=== PATIENT | female | born 1990 | race Caucasian/White ===

== ENCOUNTER 2020-03-27 16:41 | Emergency (ER) | payer OTHER, SELFPAY ==
--- NOTE | ~2020-03-27 | XR_ITS ---
EXAMINATION: XR chest 2V DATE: 03/27/2020 19:06 INDICATION: Hypertension, headache and chest tightness TECHNIQUE: PA and lateral views of the chest are obtained. COMPARISON: 02/23/2013 FINDINGS: The lungs are free of acute opacities. There is no pleural effusion or pneumothorax. The ca rdiomediastinal silhouette is normal. The visualized bones and soft tissues are unremarkable. IMPRESSION: 1. No acute cardiopulmonary abnormality. Reviewed, dictated and finalized at location A.
[2020-03-27 16:59] VITALS: BP 146/100; PULSE 82; RESP 18; TEMP 36.6; O2SAT 100
--- NOTE | 2020-03-27 17:08 | ECG_ITS ---
Measurements Intervals Jean Rate: 81 P: 52 LA: 126 QRS: 60 QRSD: 87 T: 6 QT: 377 QTc: 438 Interpretive Statements SINUS RHYTHM NONSPECIFIC T-WAVE ABNORMALITY- INFERIOR LEADS BORDERLINE ECG Electronically Signed On 03-27-2020 18:56:40 CDT by Geovanny Vernon D.O.
--- NOTE | 2020-03-27 17:16 | PC.NURSE ---
Attempt to obtain blood x2 at this time, unable to obtain blood at this time
--- NOTE | 2020-03-27 19:01 | ED.GENADULT ---
HPI - General Adult General Chief complaint: Unspecified Stated complaint: High Blood Pressure Time Seen by Provider: 03/27/20 18:58 History of Present Illness HPI narrative: Patient presents with her mother for 3 days of headache and elevated blood pressure. She works at [employer] in the [employer] department, and says that the headache is worse residential through her shift. Her mother says that both she and the which is the father both have hypertension. The patient has been having shortness of breath wearing the mask at work, but they have offered her a shield instead. She says that she does not want to take pills for blood pressure. She likes saying that she does not take medication for anything. Surgical history is appendectomy and 2 C-sections. She does not smoke,, or do drugs. She would like a COVID test and I advised her to seek a primary care physician and get it ordered in an outpatient facility. Related Data Allergies Allergy/AdvReac Type Severity Reaction Status Date / Time No Known Allergies Allergy Verified 03/27/20 19:03 Review of Systems Review of Systems: Narrative: CONSTITUTIONAL: Denies fever, chills, or sweats. EYES: Denies visual changes, redness, or discharge. ENT: Denies rhinorrhea, congestion, sore throat, or otalgia. CARDIOVASCULAR: Denies chest pain, palpitations, or edema. RESPIRATORY: Denies cough or dyspnea. GASTROINTESTINAL: Denies abdominal pain, nausea, vomiting, or diarrhea. GENITOURINARY: Denies dysuria or hematuria. SKIN: Denies rash or itching. MUSCULOSKELETAL: Denies back pain, joint pain, or myalgia. NEUROLOGIC: Denies headache now, numbness, or weakness. PSYCHIATRIC: Denies anxiety or depression. PMFSH Past Medical History Medical History (Updated 03/27/20 @ 19:46 by Kallie Domingo MD) History of asthma HTN (hypertension) Surgical History Surgical History (Updated 03/27/20 @ 19:46 by Kallie Domingo MD) History of appendectomy History of Social History Social History (Updated 03/27/20 @ 19:46 by Kallie Domingo MD) Smoking status: Never smoker Alcohol intake: never Substance use: never Exam Narrative: Exam Narrative: GENERAL: Well-appearing, well-nourished, and in no acute distress. HEAD: Normocephalic, atraumatic. EYES: PERRLA and EOMI. ENT: Nares clear, no rhinorrhea or epistaxis. Mucous membranes moist. NECK: Supple. CHEST: Clear to auscultation. No respiratory distress. HEART: Regular rate and rhythm. No murmur heard. Normal peripheral pulses. ABDOMEN: Soft, nontender, nondistended, normal active bowel sounds. EXTREMITIES: Normal range of motion. No edema. SKIN: Warm, dry, no rash. NEURO: No focal deficits. Alert and oriented x3. PSYCH: Normal mood and affect. Course Vital Signs Vital signs: Vital Signs Temperature 97.9 F 03/27/20 16:59 Pulse Rate 82 03/27/20 16:59 Respiratory Rate 18 03/27/20 16:59 Blood Pressure 146/100 H 03/27/20 16:59 Pulse Oximetry 100 03/27/20 16:59 Temperature 97.9 F 03/27/20 16:59 Pulse Rate 77 03/27/20 19:11 Respiratory Rate 17 03/27/20 19:11 Blood Pressure 157/95 H 03/27/20 19:11 Pulse Oximetry 100 03/27/20 19:11 Medical Decision Making Medical Records Medical records reviewed: Yes I reviewed the patient's medical records. Vital Signs Vital Signs: Vital Signs Temperature 97.9 F 03/27/20 16:59 Pulse Rate 82 03/27/20 16:59 Respiratory Rate 18 03/27/20 16:59 Blood Pressure 146/100 H 03/27/20 16:59 Pulse Oximetry 100 03/27/20 16:59 Temperature 97.9 F 03/27/20 16:59 Pulse Rate 77 03/27/20 19:11 Respiratory Rate 17 03/27/20 19:11 Blood Pressure 157/95 H 03/27/20 19:11 Pulse Oximetry 100 03/27/20 19:11 Lab Data Lab results reviewed: Yes I reviewed the patient's lab results. Result diagrams: 03/27/20 18:58 03/27/20 18:58 Labs: Lab Results 03/27/20 03/27/20 03/27/20 Range/Units 18:58 18:58 18:58 W
[2020-03-27 19:04] LABS: Basophils Absolute Auto 0.1 K/mm3 (0.0-0.1); Basophils Percent Auto 0.5 % (0.2-1.2); Eosinophils Absolute Auto 0.1 K/mm3 (0-0.3); Hematocrit 41.3 % (37.0-47.0); Hemoglobin 13.4 g/dL (12.0-15.0); Immature Granulocyte Absolute 0.03 K/mm3 (0.00-0.031); Immature Granulocyte Percent A 0.3 % (0-0.5); Lymphocytes Absolute Auto 1.37 K/mm3 (0.9-3.2); Lymphocytes Percent Auto 14.3 % (18.3-44.2); Mean Corpuscular HGB Conc 32.4 g/dl (32-36); Mean Corpuscular Hemoglobin 28.4 pg (26-34); Mean Corpuscular Volume 87.5 fl (80-100); Mean Platelet Volume 10.3 fl (7.4-10.4); Monocytes Absolute Auto 0.5 K/mm3 (0.1-0.6); Monocytes Percent Auto 4.9 % (2.6-8.5); Neutrophils Absolute Auto 7.5 K/mm3 (1.3-6.7); Platelet Count Result 283 k/mm3 (150-375); Red Blood Count 4.72 M/mm3 (4.2-5.4); Red Cell Distribution Width 12.4 % (11.5-14.5); White Blood Count 9.6 K/mm3 (4.5-10.0)
[2020-03-27 19:11] VITALS: BP 157/95; PULSE 77; PULSE 78; RESP 17; O2SAT 100
[2020-03-27 19:13] LABS: Prothrombin Time 12.7 Seconds (11.1-14.7)
[2020-03-27 19:14] LABS: Partial Thromboplastin Time 28.2 SECONDS (22.3-36.8)
[2020-03-27 19:17] LABS: Blood Urea Nitrogen 11 mg/dL (7-17); Calcium 9.5 mg/dL (8.4-10.2); Carbon Dioxide 28 mmol/L (22-30); Chloride 103 mmol/L (98-107); Estimated CRCL calculation 126 ml/min; Estimated Glomerular Filt Rate > 60; Glucose 92 mg/dL (65-105); Potassium 3.8 mmol/L (3.4-5.0); Sodium 141 mmol/L (137-145)
[2020-03-27 19:29] LABS: Troponin I < 0.012 ng/mL (0.000-0.034)
--- NOTE | 2020-03-27 19:54 | ED.GENADULT ---
HPI - General Adult General Chief complaint: Unspecified Stated complaint: High Blood Pressure Time Seen by Provider: 03/27/20 18:58 Related Data Allergies Allergy/AdvReac Type Severity Reaction Status Date / Time No Known Allergies Allergy Verified 03/27/20 19:03 [facility] Past Medical History Medical History (Updated 03/27/20 @ 19:46 by Kallie Domingo MD) History of asthma HTN (hypertension) Surgical History Surgical History (Updated 03/27/20 @ 19:46 by Kallie Domingo MD) History of appendectomy History of Social History Social History (Updated 03/27/20 @ 19:46 by Kallie Domingo MD) Smoking status: Never smoker Alcohol intake: never Substance use: never Course Vital Signs Vital signs: Vital Signs Temperature 97.9 F 03/27/20 16:59 Pulse Rate 82 03/27/20 16:59 Respiratory Rate 18 03/27/20 16:59 Blood Pressure 146/100 H 03/27/20 16:59 Pulse Oximetry 100 03/27/20 16:59 Temperature 98.3 F 03/27/20 20:07 Pulse Rate 80 03/27/20 20:07 Respiratory Rate 19 03/27/20 20:07 Blood Pressure 154/86 H 03/27/20 20:07 Pulse Oximetry 100 03/27/20 20:07 Medical Decision Making Vital Signs Vital Signs: Vital Signs Temperature 97.9 F 03/27/20 16:59 Pulse Rate 82 03/27/20 16:59 Respiratory Rate 18 03/27/20 16:59 Blood Pressure 146/100 H 03/27/20 16:59 Pulse Oximetry 100 03/27/20 16:59 Temperature 98.3 F 03/27/20 20:07 Pulse Rate 80 03/27/20 20:07 Respiratory Rate 19 03/27/20 20:07 Blood Pressure 154/86 H 03/27/20 20:07 Pulse Oximetry 100 03/27/20 20:07 Lab Data Result diagrams: 03/27/20 18:58 03/27/20 18:58 Labs: Lab Results 03/27/20 03/27/20 03/27/20 Range/Units 18:58 18:58 18:58 WBC 9.6 (4.5-10.0) K/mm3 RBC 4.72 (4.2-5.4) M/mm3 Hgb 13.4 (12.0-15.0) g/dL Hct 41.3 (37.0-47.0) % MCV 87.5 (80-100) fl MCH 28.4 (26-34) pg MCHC 32.4 (32-36) g/dl RDW 12.4 (11.5-14.5) % Plt Count 283 (150-375) k/mm3 MPV 10.3 (7.4-10.4) fl Immature Gran % (Auto) 0.3 (0-0.5) % Neut % (Auto) 79.0 H (45.5-73.1) % Lymph % (Auto) 14.3 L (18.3-44.2) % [place] % (Auto) 4.9 (2.6-8.5) % Eos % (Auto) 1.0 (0-4.4) % Baso % (Auto) 0.5 (0.2-1.2) % Lymph # (Auto) 1.37 (0.9-3.2) K/mm3 [place] # (Auto) 0.5 (0.1-0.6) K/mm3 Eos # (Auto) 0.1 (0-0.3) K/mm3 Baso # (Auto) 0.1 (0.0-0.1) K/mm3 Abs Immat Gran (auto) 0.03 (0.00-0.031) K/mm3 Absolute Neuts (auto) 7.5 H (1.3-6.7) K/mm3 Absolute Nucleated RBC 0.0 (0.0-0.012) K/mm3 Nucleated RBC % 0.0 (0.0-0.2) % PT 12.7 (11.1-14.7) Seconds INR 1.0 APTT 28.2 (22.3-36.8) SECONDS Sodium 141 (137-145) mmol/L Potassium 3.8 (3.4-5.0) mmol/L Chloride 103 (98-107) mmol/L Carbon Dioxide 28 (22-30) mmol/L BUN 11 (7-17) mg/dL Creatinine 0.60 L (0.7-1.0) mg/dL Estim Creat Clear Calc 126 ml/min Estimated GFR > 60 (59 - ) Glucose 92 (65-105) mg/dL Calcium 9.5 (8.4-10.2) mg/dL Troponin I < 0.012 (0.000-0.034) ng/mL Discharge Plan Discharge Clinical Impression: HTN (hypertension) Qualifiers: Hypertension type: essential hypertension Qualified Code(s): I10 - Essential (primary) hypertension Headache Qualifiers: Headache type: unspecified Headache chronicity pattern: unspecified pattern Intractability: not intractable Qualified Code(s): R51 - Headache Patient Disposition: Home, Self-Care Condition: Stable Instructions: Hypertension (ED) Prescriptions: New lisinopril 10 mg tablet 10 mg PO DAILY Qty: 30 RF: 0 Follow-up/Referrals: Barry Pham MD [Physician] - (Call and make a new patient appointment.) PHYSICIAN,TILE GRADER [Primary Care Provider] - Time of Disposition: 19:44 Discharge Date/Time: 03/27/20 20:15
[2020-03-27 20:07] VITALS: BP 154/86; PULSE 80; RESP 19; TEMP 36.8; O2SAT 100
== END 2020-03-27 20:15 | disposition home or self-care (01) ==
PROVIDERS: Emergency Medicine; Emergency Provider Emergency Medicine
DX: I10 Essential (primary) hypertension (principal); R51 Headache; J45.909 Unspecified asthma, uncomplicated
CPT/HCPCS: 36415; 71046; 80048; 84484; 85025; 85610; 85730; 93005; 99284; A9270

== ENCOUNTER 2020-09-25 16:06 | Emergency (ER) | payer OTHER, SELFPAY ==
--- NOTE | 2020-09-25 16:09 | ED.FEMALEGU ---
HPI - Female Genitourinary General Chief complaint: Urogenital-Female Stated complaint: UTI SYMPTOMS Time Seen by Provider: 09/25/20 16:09 Source: patient and RN notes reviewed History of Present Illness HPI Narrative: Patient is a 30-year-old female who presents the urgent care with complaints of a possible UTI. Patient states that yesterday she was having some fatigue and intermittent right and left low back pain. Patient states it was worse on the right. States that she does have a history of kidney stones and initially thought it was like the pain that she had in the past . Patient states that she was able to pass the 2 stones urine has been sometime. States that she has now been having chills but denies of any known fever. Denies of any nausea, vomiting, abdominal pain. States that this morning she had a lot of pressure with urination but denies of dysuria, urgency, hematuria. Patient states that her fianc? noticed that she did have urinary frequency. States that she is also been drinking a lot of soda recently especially over the holidays. No other acute complaints. Patient used Azo a few hours prior to arrival. No acute distress noted. Patient aware of the plan of care. Some parts of this dictation were generated by voice recognition software and may contain typographical and/or grammatical inaccuracies. Related Data Allergies Allergy/AdvReac Type Severity Reaction Status Date / Time No Known Allergies Allergy Verified 03/27/20 19:03 Review of Systems Review of Systems: Narrative: CONSTITUTIONAL: Denies fever, chills, or sweats. Reports of mild fatigue EYES: Denies visual changes, redness, or discharge. ENT: Denies rhinorrhea, congestion, sore throat, or otalgia. CARDIOVASCULAR: Denies chest pain, palpitations, or edema. RESPIRATORY: Denies cough or dyspnea. GASTROINTESTINAL: Denies abdominal pain, nausea, vomiting, or diarrhea. GENITOURINARY: Reports of suprapubic pressure SKIN: Denies rash or itching. MUSCULOSKELETAL: Reports of low back pain. NEUROLOGIC: Denies headache, numbness, or weakness. All other systems reviewed are negative, except as documented in HPI. [facility] Past Medical History Medical History (Updated 09/25/20 @ 16:37 by ISAIAS Boyer) History of asthma HTN (hypertension) Surgical History Surgical History (Updated 03/27/20 @ 19:46 by Kallie Domingo MD) History of appendectomy History of Social History Social History (Updated 03/27/20 @ 19:46 by Kallie Domingo MD) Smoking status: Never smoker Alcohol intake: never Substance use: never Comments At the time of my signature, I reviewed and agree with the nursing past medical, surgical, social, and family history. There is no relevant family history pertinent to the patient complaint. Exam Narrative: Exam Narrative: GENERAL: This is a well-nourished, well-developed patient, in no apparent distress. HEAD: normocephalic, atraumatic. EYES: PERRL. Sclera clear/white. Vision is grossly intact. EARS: External ears normal NOSE: External nose normal with no obvious nasal discharge, nares without redness, no rhinorrhea. THROAT: Mucous membranes moist NECK: Neck supple GASTROINTESTINAL: Abdomen soft, non-tender, nondistended. Bowel sounds are active. No suprapubic tenderness on assessment SKIN: warm, intact with no suspicious lesions or rash, good texture and turgor. NEURO: awake, alert, and oriented to person, place and time. There were no obvious focal neurologic abnormalities. EXTREMITIES: No clubbing, cyanosis, or edema. BACK: Negative bilateral CVA tenderness Course Vital Signs Vital signs: Vital Signs Temperature 97.6 F 09/25/20 16:11 Pulse Rate 88 09/25/20 16:11 Respiratory Rate 12 09/25/20 16:11 Blood Pressure 159/93 H 09/25/20 16:11 Pulse Oximetry 98 09/25/20 16:11 Temperature 97.6 F 09/25/20 16:11 Pulse Rate 88 09/25/20 16:11 Respiratory Rate 12 09/25/20 16:11 Blood Pr
[2020-09-25 16:11] VITALS: BP 159/93; PULSE 88; RESP 12; TEMP 36.4; O2SAT 98
== END 2020-09-25 16:46 | disposition home or self-care (01) ==
PROVIDERS: Emergency Provider Nurse Practitioner Family; PCP Nurse Practitioner Family
DX: R35.0 Frequency of micturition (principal); Z87.442 Personal history of urinary calculi; J45.909 Unspecified asthma, uncomplicated; I10 Essential (primary) hypertension
CPT/HCPCS: 81003; 87086; 99213; G0463

== ENCOUNTER 2022-12-09 13:12 | Emergency (ER) | payer OTHER, SELFPAY ==
--- NOTE | ~2022-12-09 | XR_ITS ---
EXAM: XR abdomen/kub 1V DATE: 12/09/2022 14:06 HISTORY: low abdomen pain left side,history kidney of stones . COMPARISON: CT abdomen pelvis 08/31/2015. FINDINGS: Surgical clips/calcified suture in the right lower quadrant from prior appendectomy. Normal bowel gas pattern. No organomegaly. The kidneys are not completely included in the dkyna-wo-njor. 2 and 5 mm calcific densities project over the right lower pole. Pelvic phleboliths. Regional bones and soft tissues normal for age. IMPRESSION: Kidneys partially excluded from the lnlkt-io-sois. Possible right nephrolithiasis. No def inite calcification in the expected pathway of the left ureter. Reviewed, dictated and finalized at location K. IMPRESSION: Kidneys partially excluded from the goynn-lg-hius. Possible right n ephrolithiasis. No definite calcification in the expected pathway of the left u reter.
[2022-12-09 13:29] VITALS: BP 135/71; PULSE 70; RESP 20; TEMP 36.6; O2SAT 100
--- NOTE | 2022-12-09 13:41 | ED.BACK ---
HPI - Back Pain/Injury General Chief Complaint: Back Pain/Injury Stated Complaint: nausea,lt side and back pain Time Seen by Provider: 12/09/22 13:41 Source: patient Mode of arrival: ambulatory Limitations: no limitations History of Present Illness HPI Narrative: 32-year-old female presents with complaint of left-sided back pain. Reports that she woke up this morning with pain across her lower back that has now moved to her left side only. Complaint of nausea. No vomiting. Afebrile. Reports history of kidney stones. States pain is similar with last stones. Was able to pass those stones on her own. No dysuria, frequency. No hematuria noted. Patient ambulatory with steady gait. All systems reviewed and negative except as noted above. Related Data Home Medications Medication Instructions Recorded Confirmed lisinopril 10 mg tablet 40 mg PO DAILY 12/09/22 12/09/22 Allergies Allergy/AdvReac Type Severity Reaction Status Date / Time No Known Allergies Allergy Verified 12/09/22 13:27 Review of Systems Review of Systems: CONSTITUTIONAL: Denies fever, chills, or sweats. EYES: Denies visual changes, redness, or discharge. ENT: Denies rhinorrhea, congestion, sore throat, or otalgia. CARDIOVASCULAR: Denies chest pain, palpitations, or edema. RESPIRATORY: Denies cough or dyspnea. GASTROINTESTINAL: Denies abdominal pain, nausea, vomiting, or diarrhea. GENITOURINARY: Denies dysuria or hematuria. Reports left flank pain. SKIN: Denies rash or itching. MUSCULOSKELETAL: Denies back pain, joint pain, or myalgia. NEUROLOGIC: Denies headache, numbness, or weakness. PSYCHIATRIC: Denies anxiety or depression. All other systems reviewed are negative, except as documented in HPI. [facility] Past Medical History Medical History (Updated 12/09/22 @ 14:52 by Elsa Julio NP) History of asthma HTN (hypertension) Surgical History Surgical History (Updated 03/27/20 @ 19:46 by Kallie Domingo MD) History of appendectomy History of Social History Social History (Updated 03/27/20 @ 19:46 by Kallie Domingo MD) Smoking status: Never smoker Alcohol intake: never Substance use: never Comments At time of signature, agree with nursing past medical, surgical, social and family history. There is no relevant family history pertinent to the presenting complaint. Exam Narrative: GENERAL: This is a well-nourished, well-developed patient, in no apparent distress. HEAD: normocephalic, atraumatic. EYES: PERRL. Sclera clear/white. Vision is grossly intact. EARS: External ears normal NOSE: External nose normal NECK: Neck supple, non-tender without lymphadenopathy, masses or thyromegaly. CARDIOVASCULAR: Regular rate and rhythm without murmurs, gallops, or rubs. RESPIRATORY: Clear to auscultation. Breath sounds equal bilaterally. No wheezes, rales, or rhonchi. SKIN: warm, Dry, intact with no suspicious lesions or rash, good texture and turgor. NEURO: awake, alert, and oriented to person, place and time. There were no obvious focal neurologic abnormalities. EXTREMITIES: No joint tenderness, effusion, or edema noted. No calf tenderness. Negative Homans sign bilaterally. BACK: Nontender without deformity. No CVA tenderness. Course Course Level of Care: Express Care Visit Vital Signs Vital signs: Vital Signs Temperature 36.6 C 12/09/22 13:29 Pulse Rate 70 12/09/22 13:29 Respiratory Rate 20 12/09/22 13:29 Blood Pressure 135/71 12/09/22 13:29 Pulse Oximetry 100 12/09/22 13:29 Oxygen Delivery Room Air 12/09/22 13:29 Temperature 36.6 C 12/09/22 13:29 Pulse Rate 70 12/09/22 13:29 Respiratory Rate 20 12/09/22 13:29 Blood Pressure 135/71 12/09/22 13:29 Pulse Oximetry 100 12/09/22 13:29 Oxygen Delivery Room Air 12/09/22 13:29 Reviewed MDM - Back Pain/Injury MDM Narrative Medical decision making narrative: Patient is aware of diagnosis, understands and agre
[2022-12-09] MEDS: ONDANSETRON HCL ODT 4 MG TABLET SUBLINGUAL (13:56)
[2022-12-09] MEDS: KETOROLAC (*BKC) 60 MG/2 ML VIAL IM (13:56)
== END 2022-12-09 15:05 | disposition home or self-care (01) ==
PROVIDERS: Emergency Provider Nurse Practitioner Family; PCP Nurse Practitioner Family
DX: N20.0 Calculus of kidney (principal); J45.909 Unspecified asthma, uncomplicated; I10 Essential (primary) hypertension
CPT/HCPCS: 74018; 81003; 81025; 96372; 99213; A9270; G0463; J1885

== ENCOUNTER 2023-01-07 23:50 | Emergency (ER) | payer OTHER, SELFPAY ==
[2023-01-07 23:52] VITALS: BP 151/94; PULSE 81; RESP 20; TEMP 36.7; O2SAT 100
--- NOTE | 2023-01-08 02:58 | PC.NURSE ---
no answer at triage
== END 2023-01-08 03:35 | disposition left against medical advice (07) ==
PROVIDERS: PCP Nurse Practitioner Family
DX: R10.30 Lower abdominal pain, unspecified (principal)
CPT/HCPCS: 99199

== ENCOUNTER 2025-05-08 01:21 | Day surgery (SDC) | payer OTHER, SELFPAY ==
[2025-04-27 11:51] VITALS: BMI 31.8
--- NOTE | 2025-04-27 12:11 | PC.NURSE ---
Report to the Outpatient Waiting Room, entrance under the green pavilion located off [facility], at time __0830 on date _05/08/25 . Planned Procedure Time: 1030 .? Time changes happen often and if your time is changed the preop area will call you the afternoon before. - You and your visitor will be asked to self-screen and do not enter if you have any COVID symptoms. Please call surgeon if you need to reschedule. - A mask is optional within the hospital at this time. Patients may have clear liquids (water, carbonated beverages, clear teas, apple juice) until 3 hours prior to surgery with a maximum of 20 ounces. - No food from midnight until time of surgery and no smoking, or chewing tobacco (or any form of nicotine). No chewing gum, candy or mints. Take only the following medications with a SIP of water on the morning of surgery: __NONE DO NOT STOP ANY OF YOUR OTHER PRESCRIPTION MEDICATIONS PRIOR TO SURGERY EXCEPT THE FOLLOWING Hold all vitamins and supplements for 3 days per anesthesiologist (VITAMIN D) Medications to discontinue per physician ___CONTINUE YOUR PROBIOTIC Date to take last dose__N/A Please no make-up, nail khmer, hairspray, perfume, deodorant, or body powder the day of surgery.? No jewelry (including any body piercings) or valuables the day of surgery, leave them at home.? Please take a shower or bath the night before, or the morning of, surgery with an antibacterial soap.? Wear comfortable, loose fitting clothing.? - Jewelry must be removed prior to entering the operating room.? Rings and piercings that are not removed may be cut off. - The hospital will not accept responsibility for valuables.? - Please leave all valuables, including medications, at home the day of surgery. If you are going home after surgery, a licensed owner operator tanker truck driver must drive you home.? - NO public transportation without another adult if you receive anesthesia. - We recommend that an adult stay with you for 24 hours following discharge. - We also recommend that you do not drive, make important decision, drink alcoholic beverages, or take any drugs that were not prescribed by your health care provider for at least 24 hours after your discharge time. Follow any additional instructions given to you from your surgeon. Telephone instructions given to __RHONDA and asked if any additional questions and then verbalized understanding. Patient advised to call surgeon office or pre surgery nurse liaison [phone] if any additional questions.
--- OUTSIDE RECORDS SUMMARY | 2025-05-08 01:24 | XMS_ITS | Continuity of Care Document ---
Author Organization [facility] Address [address] [place] [address] Phone Care Team Providers Care Toolmaker Grade Three Name Role Phone Quan Jenkins MD Unavailable Unavailable Advance Directives Directive Yes / No Effective Date File Name No Information Encounters Encounter Description Practice Location Reason(s) For Visit Diagnoses Date Provider Providers Copied on Encounter [facility], [address], [place], [place], [id number], [place] tel:[phone] [facility] No Information [address] [facility] [facility] [address] [place], [place], [id number], [place]. tel:[phone] Family History Family Member Type Diagnosis Age At Onset No Information Payers Payer name Insurance type Covered constitution party ID Authoriza tion(s) Medicaid [facility] [id number] Social History Type Description Quantity Date Captured Comments Sex Female Smoking Status No Information Chief Complaint And Reason For Visit No Information Reason For Referral Reason For Referral No Information History Of Present Illness Encounter Date Complaint History Of Prese nt Illness No Information Functional Status Date Functional Assessmen t No Information Instructions Date Instruction Additional Infor mation No Information Assessments Type Assessment Date No Information Patient Care Teams Name Effective Dates (start - stop) Status Members No Information
--- NOTE | 2025-05-08 07:52 | WPDANESEPPF ---
Anes - Initial Pre Proc Eval Procedure: Operation Date: 05/08/25 10:30 Proposed Procedures p Hysteroscopy Dilation and Curettage - Deborah Linda MD Date/Time: 05/08/25 07:52 Surgeon: Deborah Linda MD Pre Op Diagnosis: menorrhagia Patient Data Age: 35 Gender: F Height: 1.65 m Weight: 87 kg Allergies Allergy/AdvReac Type Severity Reaction Status Date / Time No Known Allergies Allergy Verified 05/08/25 09:33 Home Medications ?Medication ?Instructions ?Recorded ?Confirmed ?Type Saccharomyces boulardii 250 mg 10,000 mmu cells PO DAILY 04/27/25 04/27/25 History capsule (Daily Probiotic (S. boulardii)) cholecalciferol (vitamin D3) 125 5,000 unit PO DAILY 04/27/25 04/27/25 History mcg (5,000 unit) tablet (Vitamin D3) Patient hx anesthesia problems: none Family hx anesthesia problems: none Results Review: All pre-operative results and documents have been reviewed as part of the pre-operative evaluation. [facility] Past Medical History Medical History (Updated 05/08/25 @ 07:59 by Deborah Linda MD) Bipolar 1 disorder ADHD ADD (attention deficit disorder) Anxiety History of asthma HTN (hypertension) Surgical History Surgical History (Updated 05/08/25 @ 07:58 by Deborah Linda MD) History of X2 History of appendectomy Social History Social History (Updated 03/27/20 @ 19:46 by Kallie Domingo MD) Smoking status: Former smoker Alcohol intake: never Substance use: never Substance use type: does not use Living arrangements: with family Spiritual care concerns: No Anes - Eval Final PreProcedure Day of Procedure 05/08/25 07:52 Patient weight: obese Heart: regular rate and rhythm Lungs: clear to auscultation Airway: Mallampati scale class II Neurological: alert and oriented Last oral intake: >/= 8 hours ASA classification: II Emergent: no Anesthetic plan: proceed Anesthesia type and monitoring: general GIVS and standard monitoring Results Review: All pre-operative results and documents have been reviewed as part of the pre-operative evaluation. Informed Consent: The patient's anesthetic plan and its attendant risks and benefits were discussed with the patient/family/POA. Questions were solicited and answers provided to the satisfaction of the patient/family/POA.
--- NOTE | 2025-05-08 07:56 | WPDHPUPDATE1 ---
History and Physical Update Update Date/Time: 05/08/25 07:56 History and Physical has been reviewed, including an updated exam of the patient. There are NO changes in the patient's condition. Risks, benefits, and alternatives have been discussed and questions answered. Patient agrees to proceed with procedure.
--- NOTE | 2025-05-08 07:56 | PM.HPGS ---
History of Present Illness History of Present Illness Consent: Risks, benefits, and alternatives have been discussed and questions answered. Patient agrees to proceed with procedure. Chief complaint: menorrhagia Narrative: Jordyn De La Paz is a 35 year old female with prolonged cycles lasting for 10 to 13 days. It was recommended to undergo D&C hysteroscopy. Risks of infection, bleeding, perforation, and possible pathology were reviewed. Patient was hesitant to schedule. The risks of doing nothing were also reviewed including the risk of worsening pathology. The patient voices understanding agrees to proceed. Review of Systems Review of Systems: not repeated day of surgery; patient states no changes in status PMF Past Medical History Medical History (Updated 05/08/25 @ 07:59 by Deborah Linda MD) Bipolar 1 disorder ADHD ADD (attention deficit disorder) Anxiety History of asthma HTN (hypertension) Surgical History Surgical History (Updated 05/08/25 @ 07:58 by Deborah Linda MD) History of X2 History of appendectomy Social History Social History (Updated 03/27/20 @ 19:46 by Kallie Domingo MD) Smoking status: Former smoker Alcohol intake: never Substance use: never Substance use type: does not use Living arrangements: with family Spiritual care concerns: No Meds Home Medications and Allergies Home Medications ?Medication ?Instructions ?Recorded ?Confirmed ?Type Saccharomyces boulardii 250 mg 10,000 mmu cells PO DAILY 04/27/25 04/27/25 History capsule (Daily Probiotic (S. boulardii)) cholecalciferol (vitamin D3) 125 5,000 unit PO DAILY 04/27/25 04/27/25 History mcg (5,000 unit) tablet (Vitamin D3) Allergies Allergy/AdvReac Type Severity Reaction Status Date / Time No Known Allergies Allergy Verified 04/27/25 11:59 Exam Const: General: healthy appearing and alert Orientation/consciousness: patient oriented x3 Resp: Effort & Inspection: normal respiratory effort : External Female Exam: normal external appearance Speculum Exam - Vagina: normal appearance of the vagina and normal vaginal discharge Speculum Exam - Cervix: normal appearance of the cervix Bimanual exam- vagina & uterus: uterine size normal and consistency normal Bimanual Exam- Adnexa, other: normal adnexae and No adnexal tenderness Neuro: General: patient oriented x3 Assessment and Plan Assessment and plan (1) Menorrhagia: Code(s): N92.0 - Excessive and frequent menstruation with regular cycle Status: Acute Assessment and Plan: Plan to proceed with D&C hysteroscopy
[2025-05-08] MEDS: ACETAMINOPHEN 500 MG TABLET 1000 MG PO (09:20)
[2025-05-08] MEDS: LACTATED RINGERS 1,000 ML 30 ML IV CONT (09:30)
[2025-05-08 09:34] VITALS: BP 151/80; PULSE 84; TEMP 36.4; O2SAT 100; BMI 31.4
[2025-05-08 09:44] LABS: BEDSIDEPREGUCG Negative (Negative)
[2025-05-08] MEDS: KETOROLAC 30 MG/ML VIAL (*BKC) IV PUSH (10:26)
--- NOTE | 2025-05-08 10:31 | S_PTH ---
PATIENT: Jordyn De La Paz LOC: [facility] U#:[id number] AGE/SX: 35/F ROOM: RE05/08/[address]: Deborah Linda MD : 1990 BED: DIS: 05/08/2025 SPEC #: [id number] RECD: 05/08/25 11:59 STATUS: HYACINTH RE #: [id number] ORQUIDEA: 05/08/25 10:[address]: Deborah Linda DEPT: [facility] Surgical RECD BY: Radha Andrews ENTERED: 05/08/25 12:00 SP TYPE: Surgical OTHR DR: Dayron EchavarriaMD Tissues: A - Endometrial Curettings Procedures: Hematoxylin and Eosin Stain Gross and Microscopic Level 4
--- NOTE | 2025-05-08 10:36 | W.PM.PROC2 ---
Procedure Note - Detailed Date of Procedure 05/08/25 Pre-op Diagnosis menorrhagia Post-op Diagnosis Same Procedure Performed D&C hysteroscopy Surgeon Deborah Linda MD Anesthesia MAC Findings The uterus sounds to 9cm and appears grossly normal. Description of Procedure The patient was taken to the operating room and placed under anesthesia in the dorsal lithotomy position. She was prepped and draped in the usual sterile fashion. [place] speculum was placed in the vagina and the cervix grasped on the anterior lip with a tenaculum. The uterus is sounded to 9cm. The diagnostic hysteroscope was placed and with no abnormalities noted it is removed. The OO sharp curette would not pass the internal os. The [place] was were used to dilate to a 5. The OO sharp curette was then used to curette the endometrium until a good uterine cry was noted in all areas. All instruments are removed. Sponge, needle, and instrument counts are correct per the OR staff. The patient was awakened from anesthesia and taken to recovery in stable condition. Estimated Blood Loss 5 Drains No Packing No Pathology Yes (Endometrial curettings) Complications No immediate complications Condition Stable Disposition PACU
[2025-05-08 10:37] VITALS: BP 115/63; PULSE 70; RESP 16; O2SAT 99
[2025-05-08 11:05] VITALS: BP 141/73; PULSE 60; O2SAT 100
[2025-05-08 11:35] VITALS: BP 162/82; PULSE 76
[2025-05-08 12:00] VITALS: BP 150/68; PULSE 78
== END 2025-05-08 12:05 | disposition home or self-care (01) ==
PROVIDERS: PCP Family Medicine; Visit Provider Obstetrics & Gynecology Gynecology
PROC: 0U5B8ZZ Destruction of Endometrium, Via Natural or Artificial Opening Endoscopic (ICD-10-PCS; CPT 58563; principal; 2025-05-08 10:30)
DX: N85.8 Other specified noninflammatory disorders of uterus (principal); I10 Essential (primary) hypertension; J45.909 Unspecified asthma, uncomplicated; F41.9 Anxiety disorder, unspecified; F90.9 Attention-deficit hyperactivity disorder, unspecified type; F31.9 Bipolar disorder, unspecified; E66.9 Obesity, unspecified; Z68.31 Body mass index [BMI] 31.0-31.9, adult; Z98.890 Other specified postprocedural states; Z87.891 Personal history of nicotine dependence
CPT/HCPCS: 58558; 88305; A9270; J1885; J2003; J2250; J2704; J3010; J7120

== ENCOUNTER 2025-09-03 19:23 | Emergency (ER) | payer OTHER, SELFPAY ==
--- NOTE | 2025-09-03 19:41 | ED_ITS ---
HPI - URI/Sore Throat General Chief Complaint: Upper Respiratory Infection Stated Complaint: URI Time Seen by Provider: 09/03/25 19:55 Source: patient and RN notes reviewed Mode of arrival: ambulatory Limitations: no limitations History of Present Illness HPI Narrative: 35-year-old female presents with concern for several day history of sore throat, nasal congestion, loss of taste and smell. Reports sore throat was worse this morning. She denies fever, body aches, chills, sweats. She denies cough. She took Benadryl, Tylenol and 1 DayQuil today MD elicited complaint: sore throat and nasal congestion Related Data Home Medications ?Medication ?Instructions ?Recorded ?Confirmed ?Last Taken ?Type Saccharomyces boulardii 250 mg 10,000 mmu cells PO BRITTANY LY 04/27/25 04/27/25 Unknown History capsule (Daily Probiotic (S. boulardii)) cholecalciferol (vitamin D3) 125 5,000 unit PO DAILY 0 04/27/25 04/27/25 Unknown History mcg (5,000 unit) tablet (Vitamin D3) metoprolol succinate 25 mg mg PO 09/03/25 Unknown His tory tablet,extended release 24 hr norgestimate-ethinyl estradiol tablet 09/03/25 Unknow n History 0.18mg/0.215mg/0.25mg-0.035mg(28)tablet (Tri-Sprintec (28)) Allergies Allergy/AdvReac Type Severity Reaction Status Date / Time No Known Allergies Allergy Verified 09/03/25 19:43 Review of Systems Review of Systems: CONSTITUTIONAL: Denies malaise, chills, sweats, or fever. EYES: Denies visual changes, redness, or discharge. ENT: Reports rhinorrhea, congestion, and sore throat. CARDIOVASCULAR: Denies chest pain, palpitations, or edema. RESPIRATORY: Denies cough. Denies dyspnea. GASTROINTESTINAL: Denies abdominal pain, nausea, vomiting, diarrhea SKIN: Denies rash or itching. MUSCULOSKELETAL: Denies myalgia. NEUROLOGIC: Denies headache. All systems reviewed & are unremarkable except as noted in HPI and below PMFSH Past Medical History Medical History (Updated 09/03/25 @ 20:01 by Breanna Borrego APRN) Bipolar 1 disorder ADHD ADD (attention deficit disorder) Anxiety History of asthma HTN (hypertension) Surgical History Surgical History (Updated 05/08/25 @ 07:58 by Deborah Linda MD) History of X2 History of appendectomy Social History Social History (Updated 03/27/20 @ 19:46 by Kallie Domingo MD) Smoking status: Former smoker Alcohol intake: never Substance use: never Substance use type: does not use Living arrangements: with family Spiritual care concerns: No Comments At time of signature, agree with nursing past medical, surgical, social and family history. There is no relevant family history pertinent to the presenting complaint Exam Narrative: GENERAL: Well-appearing, well-nourished, and in no acute distress. HEAD: Normocephalic EYES: PERRLA, conjunctivae clear ENT: Nares clear. Mucous membranes moist. TM pearly lara with sharp light reflex bilaterally; no tragal tenderness. Oropharynx not erythematous without lesions. Tonsils not enlarged and without exudate, no drooling, no hoarseness, no trismus, uvula midline. NECK: Supple. No lymphadenopathy CHEST: Clear to auscultation, breath sounds equal. No wheezing, rhonchi, rales, or stridor. No respiratory distress, speaks in full sentences. HEART: Regular rate and rhythm. No murmur heard. SKIN: Warm, dry, no rash. NEURO: Alert and oriented x3. PSYCH: Normal mood and affect Course Course Emergency Course: Patient is aware of diagnosis, understands and agrees to treatment plan. Anticipatory guidance given. Patient agrees to follow-up as directed and is aware of reasons to seek care at the emergency department. Portions of this record may have been created with voice recognition software Level of Care: [facility] Visit MDM Differential Diagnosis Differential Diagnosis: I evaluated this patient in the [facility]. History is obtained from patient who is an independent historian and physical exam was performed.? Available medical records were reviewed. ? Exam findings and relevant testing show no acute concerns or changes; patient is non-toxic appearing and is in no distress. ? Differential diagnosis considered: Simmons virus, strep pharyngitis, allergic rhinitis, upper respiratory tract infection, sinusitis, rhinosinusitis, nasopharyngitis. viral pharyngitis, otitis media, otitis externa, pneumonia, bronchitis, viral cough syndrome, viral syndrome, and influenza. Differential diagnosis and treatment plan were discussed with the patient. Patient agrees with discussion and after shared medical decision making agrees with plan of care. All questions were answered to the patient's satisfaction. Patient is appropriate for outpatient treatment and follow-up. Discharge Plan Discharge Clinical Impression: Upper respiratory infection Patient Disposition: Home Condition: Stable Instructions: Antibiotic Form, Upper Respiratory Infection (ED) Additional Instructions: Your rapid COVID and flu tests are negative Your rapid strep swab was negative today at [facility]. A throat culture will be sent to the laboratory for further testing. If the test is positive, you will receive a phone call within 48 hours and an appropriate antibiotic will be initiated at that time. Your symptoms are likely due to a viral illness, which is not treated with antibiotics. Viral symptoms can be present for up to a few weeks. -Alternate Tylenol and Motrin per package directions for fever or pain. -Antihistamine medication such as Benadryl at night and Zyrtec during the day can help improve symptoms. -Eat and drink things that are easy to swallow, like tea or soup, or popsicles to suck on. -Oral rinses such as: Salt water gargles and/or may use topical anesthetic (eg. Chloraseptic spray) or lozenges to relieve dryness or throat pain). -Frequent hand washing or hand cylindrical mixer is one of the best ways to prevent spread of infection. -Follow up with primary care provider in 2-3 days if condition is not improving; or seek ER visit if you have trouble breathing, cannot drink enough fluids, have muffled voice, difficulty opening your mouth, or severe swelling. Patient Language: Welsh Prescriptions: New pseudoephedrine HCl [12 Hour Decongestant] 120 mg tablet extended release 120 mg PO Q12H PRN (Reason: nasal congestion) Qty: 20 0RF No Action norgestimate-ethinyl estradiol [Tri-Sprintec (28)] 0.18/0.215/0.25 mg-0.035mg (28) tablet metoprolol succinate 25 mg tablet extended release 24 hr PO cholecalciferol (vitamin D3) [Vitamin D3] 125 mcg (5,000 unit) tablet 5,000 unit PO DAILY Saccharomyces boulardii [Daily Probiotic (S. boulardii)] 250 mg capsule 10,000 mmu cells PO DAILY Follow-up/Referrals: Jericho,MD Dayron [Primary Care Provider, Unknown] Time of Disposition: 20:04
[2025-09-03 19:44] VITALS: BP 181/97; PULSE 76; RESP 16; TEMP 36.7; O2SAT 99
[2025-09-03 20:03] LABS: EDCOVIDSCREEN Negative (Negative); EDINFLUASCREEN Negative (Negative); EDINFLUBSCREEN Negative (Negative); EDSTREPNEGPOS1 Negative (Negative)
== END 2025-09-03 20:07 | disposition home or self-care (01) ==
PROVIDERS: Emergency Provider Nurse Practitioner; PCP Family Medicine
DX: J06.9 Acute upper respiratory infection, unspecified (principal); I10 Essential (primary) hypertension; J45.909 Unspecified asthma, uncomplicated; Z87.891 Personal history of nicotine dependence
CPT/HCPCS: 87081; 87426; 87804; 87880; 99213; G0463

== ENCOUNTER 2025-09-12 13:50 | Emergency (ER) | payer OTHER, SELFPAY ==
--- NOTE | 2025-09-12 13:51 | ED_ITS ---
HPI - URI/Sore Throat General Chief Complaint: Upper Respiratory Infection Stated Complaint: URI Source: patient and RN notes reviewed Mode of arrival: ambulatory Limitations: no limitations History of Present Illness HPI Narrative: Patient is a 35-year-old female who presents to the [facility] with complaints nasal congestion, cough, headache, sore throat that has been ongoing for the past 10 days. Patient reports nasal congestion and drainage. She states that she has been taking cold and flu medication at home without relief. She reports frequent nonproductive cough. Denies chest pain or shortness of breath. She does endorse generalized body aches and chills. She states that when she initially got sick, she was evaluated at this facility and tested for COVID, flu, strep. Her tests were all negative. However, she continues to have symptoms. Her respirations are unlabored. She does not appear in any acute distress. Related Data Home Medications ?Medication ?Instructions ?Recorded ?Confirmed ?Last Taken ?Type Saccharomyces boulardii 250 mg 10,000 mmu cells PO BRITTANY LY 04/27/25 04/27/25 Unknown History capsule (Daily Probiotic (S. boulardii)) cholecalciferol (vitamin D3) 125 5,000 unit PO DAILY 0 04/27/25 04/27/25 Unknown History mcg (5,000 unit) tablet (Vitamin D3) metoprolol succinate 25 mg mg PO 09/03/25 Unknown His tory tablet,extended release 24 hr norgestimate-ethinyl estradiol tablet 09/03/25 Unknow n History 0.18mg/0.215mg/0.25mg-0.035mg(28)tablet (Tri-Sprintec (28)) Allergies Allergy/AdvReac Type Severity Reaction Status Date / Time No Known Allergies Allergy Verified 09/12/25 13:51 Review of Systems Review of Systems: CONSTITUTIONAL: Denies fever, but reports chills. EYES: Denies visual changes, redness, or discharge. ENT: Denies otalgia but reports sore throat and congestion. CARDIOVASCULAR: Denies chest pain, palpitations, or edema. RESPIRATORY: Reports cough but denies dyspnea. GASTROINTESTINAL: Denies abdominal pain, nausea, vomiting, or diarrhea. GENITOURINARY: Denies dysuria or hematuria. SKIN: Denies rash or itching. MUSCULOSKELETAL: Denies back pain and joint pain, but reports myalgia. NEUROLOGIC: Reports headache but denies numbness or weakness. Pertinent positives per HPI. [facility] Past Medical History Medical History Bipolar 1 disorder ADHD ADD (attention deficit disorder) Anxiety History of asthma HTN (hypertension) Surgical History Surgical History History of X2 History of appendectomy Social History Social History Smoking status: Former smoker Alcohol intake: never Substance use: never Substance use type: does not use Living arrangements: with family Spiritual care concerns: No Comments At the time of my signature, I reviewed and agree with the nursing past medical, surgical, social, and family history. There is no relevant family history pertinent to the patient complaint. Exam Narrative: GENERAL: This is a well-nourished, well-developed patient, in no apparent distress. HEAD: normocephalic, atraumatic. EYES: Sclera clear/white. Vision is grossly intact. EARS: External ears normal. Hearing grossly intact. NOSE: External nose normal. Nasal congestion. Sinus tenderness. THROAT: Mucous membranes moist, oropharyngeal erythema. NECK: Neck supple, non-tender without lymphadenopathy, masses or thyromegaly. CARDIOVASCULAR: Regular rate and rhythm without murmurs, gallops, or rubs. RESPIRATORY: Clear to auscultation. Breath sounds equal bilaterally. No wheezes, rales, or rhonchi. GASTROINTESTINAL: Abdomen soft, non-tender, nondistended. Bowel sounds are active. No hepato-splenomegaly, or palpable masses. No guarding. SKIN: warm, intact with no suspicious lesions or rash, good texture and turgor. NEURO: awake, alert, and oriented to person, place and time. There were no obvious focal neurologic abnormalities. Course Course Level of Care: Express Care Visit Vital Signs Vital signs: Reviewed MDM MDM Narrative Medical decision making narrative: Go to the ER for any new or worsening symptoms. Avoid smoking/second-hand smoke. Continue to take Tylenol or Motrin for pain. Increase your Vitamin C intake. Use a humidifier or vaporizer at night. Take Medications as prescribed. Drink plenty of water. 8-10 glasses per day. Use flonase 2 times per day for 5 days then as needed Take mucinex 2 times per day and be sure to take with 8oz of water. Follow up with Primary provider if not getting better. Differential Diagnosis Differential Diagnosis: URI, viral illness, strep, pharyngitis, sinusitis Lab Data [facility] Lab Attestation statement: I personally reviewed the patient's lab results. Critical Care Time Critical Care Time Critical Care Time: No Discharge Plan Discharge Clinical Impression: Sinusitis Qualifiers: Sinusitis location: unspecified location Chronicity: acute Recurrence: non- recurrent Qualified Code(s): J01.90 - Acute sinusitis, unspecified Patient Disposition: Home Condition: Stable Instructions: Antibiotic Form, Sinusitis (ED) Additional Instructions: Go to the ER for any new or worsening symptoms. Avoid smoking/second-hand smoke. Continue to take Tylenol or Motrin for pain. Increase your Vitamin C intake. Use a humidifier or vaporizer at night. Take Medications as prescribed. Drink plenty of water. 8-10 glasses per day. Use flonase 2 times per day for 5 days then as needed Take mucinex 2 times per day and be sure to take with 8oz of water. Follow up with Primary provider if not getting better. Patient Language: Icelandic Prescriptions: New amoxicillin-pot clavulanate 875-125 mg tablet 1 tablet PO Q12H 10 Days Qty: 20 0RF fluticasone propionate [Flonase Allergy Relief] 50 mcg/actuation spray,suspension 1 spray intranasal BID Qty: 16 0RF Rx Instructions: administer into each nostril No Action norgestimate-ethinyl estradiol [Tri-Sprintec (28)] 0.18/0.215/0.25 mg-0.035mg (28) tablet metoprolol succinate 25 mg tablet extended release 24 hr PO pseudoephedrine HCl [12 Hour Decongestant] 120 mg tablet extended release 120 mg PO Q12H PRN (Reason: nasal congestion) Qty: 20 0RF cholecalciferol (vitamin D3) [Vitamin D3] 125 mcg (5,000 unit) tablet 5,000 unit PO DAILY Saccharomyces boulardii [Daily Probiotic (S. boulardii)] 250 mg capsule 10,000 mmu cells PO DAILY Follow-up/Referrals: Jericho,MD Dayron [Primary Care Provider, Unknown] Stand Alone Forms: Work/School Release IP Time of Disposition: 14:10
[2025-09-12 14:06] VITALS: BP 176/108; PULSE 88; RESP 18; TEMP 36.4; O2SAT 100
== END 2025-09-12 14:12 | disposition home or self-care (01) ==
PROVIDERS: Emergency Provider Nurse Practitioner; PCP Family Medicine
DX: J01.90 Acute sinusitis, unspecified (principal); Z87.891 Personal history of nicotine dependence; I10 Essential (primary) hypertension; J45.909 Unspecified asthma, uncomplicated
CPT/HCPCS: 99213; G0463